=== PATIENT | male | born 1960 | race Two or more races ===

== ENCOUNTER 2024-06-18 11:17 | Outpatient (AMB) | payer MEDICARE, SELFPAY ==
--- NOTE | 2024-06-18 11:28 | A.OFFVIS_ITS ---
Vital Signs 3 06/18/24 11:42 Height 5 ft 7 in Weight 172 lb BMI 26.9 BP 132/90 H Blood Pressure Location Lt brachial Position Sitting Pulse 67 Intake Visit Reasons: RT groin confirmed inguinal hernia Intake Note: Patient is seen in office for evaluation of a right groin hernia. Pt c/o:feels a lump in the right groin, onset few months, reducible, denies pain, discomfort, or increase Imagin05/21/24 Resin Painter Required: No Accompanied by: Self / Same As Patient Allergies No Known Allergies Allergy (Verified 06/18/24 11:41) Medication List - Last Reconciled 06/18/24 by Joaquin Martinez MD apixaban (Eliquis) 5 mg PO BID HPI Comments Details: 63-year-old male patient presenting for evaluation of a right inguinal hernia. He 1st noted the lump several months ago but denies any inciting events. He does note the lump to occasionally increase in size with lifting and straining but does feel the hernia reduce in the supine position. He denies any pain associated with the hernia. He also denies nausea, vomiting, fever, chills, diarrhea, or constipation. Denies a prior history of hernias or hernia surgery. [facility] Social History Alcohol intake: current Alcohol intake frequency: holidays/special occasions only Patient Tobacco Use Status: Former Tobacco user Review of Systems Const All systems reviewed & are unremarkable except as noted in HPI and below Physical Exam Vital Signs: Last Vital Signs Pulse 67 06/18/24 11:42 BP 132/90 H 06/18/24 11:42 BMI result Body Mass Index 26.9 Const General: cooperative and no acute distress Nutritional Appearance: well nourished Orientation/consciousness: patient oriented x3 Limitations: no limitations HEENT Head: Yes normocephalic and Yes atraumatic Ears: hearing grossly normal bilaterally Resp Effort & Inspection: normal respiratory effort, no audible wheezes, no cough and no respiratory distress Cardio Jugular venous distension: no JVD GI Other: Small right inguinal hernia noted in the standing position which increased slightly with Valsalva maneuvers but is easily reduced with light pressure. No left inguinal hernias appreciated. Inspection: Yes normal to inspection Abdomen image: 2 1. Small right inguinal hernia, easily reducible. Skin Other: Warm, dry, no rash Neuro General: patient oriented x3 Extrem General: Yes no clubbing, cyanosis or edema Assessment & Plan Assessment & Plan (1) Right inguinal hernia: Code(s): K40.90 - Unilateral inguinal hernia, without obstruction or gangrene, not specified as recurrent Category: Medical Plan 63-year-old male patient with a new onset right inguinal hernia which was recently identified and confirmed on physical examination. He denies any symptoms associated with the hernia at this time and denies any inciting events caused the hernia. We discussed the repair of the inguinal hernia including the risks and benefits. He wishes to think about his options and will call should his symptoms worsen or if he wishes to schedule the surgery. He should follow up as needed. Coding Level of Care Code New Pt Level 4 (18033) Diagnoses Right inguinal hernia K40.90
[2024-06-18 11:42] VITALS: BP 132/90; PULSE 67; BMI 26.9
== END 2024-06-18 11:58 | disposition home or self-care (01) ==
PROVIDERS: PCP Internal Medicine; Referring Provider Internal Medicine; Visit Provider Surgery
DX: K40.90 Unilateral inguinal hernia, without obstruction or gangrene, not specified as recurrent (principal)
CPT/HCPCS: 99204

== ENCOUNTER → 2024-06-18 11:17 | Outpatient (BNVA) | payer MEDICARE, SELFPAY | PROVIDERS: PCP Internal Medicine; Referring Provider Internal Medicine; Visit Provider Surgery | DX: K40.90 Unilateral inguinal hernia, without obstruction or gangrene, not specified as recurrent (principal) | CPT/HCPCS: 99202 ==

== ENCOUNTER 2024-07-10 12:30 | Day surgery (SDC) | payer MEDICARE, SELFPAY ==
[2024-06-27 14:05] VITALS: BMI 26.3
--- NOTE | 2024-06-28 11:56 | HO.ANESPROP2 ---
Documented by User: Steffany Fowler NP 07/02/24 13:16 HPI - Anesthesia Eval Consult details Narrative: 63yo M for Right Repair Hernia Inguinal with mesh Follows [facility] Cardiology. Optimized for procedure. Last office visit 04/2024 Eliquis for afib PMFSH Active Problems Active Problems: All Active Problems Right inguinal hernia (Acute) Past Medical History Medical History (Updated 06/27/24 @ 13:50 by Lexie Andres RN) Back pain COPD (chronic obstructive pulmonary disease) PAF (paroxysmal atrial fibrillation) BPH (benign prostatic hyperplasia) Surgical History Surgical History (Updated 06/27/24 @ 13:50 by Lexie Andres RN) H/O colonoscopy Social History Social History Are you a primary home care and home health aides teacher to a significant other at home: No Do you presently have visiting nurse or other home services: No Alcohol intake: current Alcohol intake frequency: a few times a month Patient Tobacco Use Status: Former Tobacco user Use of substances other than those prescribed or required for medical reasons: No Have you been hit, kicked, punched, or otherwise hurt by someone within the past year? If so, by whom?: No Are you DNR?: No Advance Directives: No Advance Directives Information Provided: Yes Advance Directives on File: No Recently lost weight without trying: No Eating poorly because of decreased appetite: No Nutrition Risks: No Nutritional Risk Poor oral hygiene: Yes (missing teeth) Meds Allergies Allergy/AdvReac Type Severity Reaction Status Date / Time No Known Allergies Allergy Verified 06/18/24 11:41 Home Medications ?Medication ?Instructions ?Recorded ?Confirmed ?Last Taken ?Type apixaban 5 mg tablet (Eliquis) 5 mg PO BID 06/18/24 06/27/24 07/06/24 History albuterol sulfate 90 mcg/actuation 1 puff inhalation Q4H PRN 06/27/24 06/27/24 07/09/24 History aerosol inhaler Shortness Of Breath Or Wheezing ascorbic acid (vitamin C) 500 mg 500 mg PO DAILY 06/27/24 06/27/24 07/09/24 History tablet (Vitamin C) fluticasone furoate 100 1 ea inhalation DAILY 06/27/24 06/27/24 07/09/24 History mcg-vilanterol 25 mcg/dose inhalation powder (Breo Ellipta) multivitamin 1 tab PO DAILY 06/27/24 06/27/24 07/09/24 History Exam Height,Weight and Vital Signs: Height 5 ft 7 in Weight 76.204 kg Pertinent Lab Results Pertinent Lab Results: From outside facility CBC 01/2024 wnl except low H&H @ 12.5/38.6 BMP 01/2024 wnl Narrative Narrative: EKG 01/2024 afib NAD Peaked T Echo 05/2024 Nml LV chamber size. Borderline conc LVH. Nml LV sys function Nml RWM. LVEF 55-60%. Afib Nml RV size and function PASP not elevated Severely dilated LA No hemodynamically significant valve disease Assessment and Plan Assessment Anesthesia Assessment: Chart Reviewed Documented by User: Erlin Ventura MD 07/10/24 16:01 [facility] Past Medical History Medical History (Updated 06/27/24 @ 13:50 by Lexie Andres RN) Back pain COPD (chronic obstructive pulmonary disease) PAF (paroxysmal atrial fibrillation) BPH (benign prostatic hyperplasia) Family History Family history of problems with anesthesia: No Surgical History Surgical History (Updated 06/27/24 @ 13:50 by Lexie Andres RN) H/O colonoscopy History of Problems with Anesthesia: No Social History Social History Are you a primary home care and home health aides teacher to a significant other at home: No Do you presently have visiting nurse or other home services: No Alcohol intake: current Alcohol intake frequency: a few times a month Patient Tobacco Use Status: Former Tobacco user Use of substances other than those prescribed or required for medical reasons: No Have you been hit, kicked, punched, or otherwise hurt by someone within the past year? If so, by whom?: No Are you DNR?: No Advance Directives: No Advance Directives Information Provided: Yes Advance Directives on File: No Recently lost weight without trying: No Eating poorly because of decreased appetite: No Nutrition Risks: No Nutritional Risk Poor oral hygiene: Yes (missing teeth) Meds Allergies Allergy/AdvReac Type Severity Reaction Status Date / Time No Known Allergies Allergy Verified 06/18/24 11:41 Home Medications ?Medication ?Instructions ?Recorded ?Confirmed ?Last Taken ?Type apixaban 5 mg tablet (Eliquis) 5 mg PO BID 06/18/24 06/27/24 07/06/24 History albuterol sulfate 90 mcg/actuation 1 puff inhalation Q4H PRN 06/27/24 06/27/24 07/09/24 History aerosol inhaler Shortness Of Breath Or Wheezing ascorbic acid (vitamin C) 500 mg 500 mg PO DAILY 06/27/24 06/27/24 07/09/24 History tablet (Vitamin C) fluticasone furoate 100 1 ea inhalation DAILY 06/27/24 06/27/24 07/09/24 History mcg-vilanterol 25 mcg/dose inhalation powder (Breo Ellipta) multivitamin 1 tab PO DAILY 06/27/24 06/27/24 07/09/24 History Exam Airway Mallampati Class: II TM Dist: >3cm Neck ROM: Full Loose/Missing/Broken Teeth: No Heart: ok. see above Lungs: ok Assessment and Plan Assessment Anesthesia Assessment: Anesthesia Plan Discussed Final Anesthetic Review Family History of Problems with Anesthesia: No History of Problems with Anesthesia: No NPO: Yes ASA Class: III Final Preanesthetic Review: No Changes in Pt Med Stat, Meds/Allgs Chart Reviewed, Consent Obtained/Reviewed, Anes Risks/Benef Reviewed and DNR Form (If Appl.) Patient Risk: Low Procedure Risk: Low Anesthetic Plan Anesthetic Plan: GA and Agree w/ Assess. and Plan Disposition: Standard PACU
[2024-07-10 13:43] VITALS: BP 139/76; PULSE 61; RESP 16; TEMP 36.7; O2SAT 100
[2024-07-10] MEDS: Lactated Ringers 1,000 ML 100 ML IVCONT (13:51)
--- NOTE | 2024-07-10 15:00 | MHC.SHP ---
Pre-Procedural Eval Section A - 24 Hr Update-Section A only Date of Service: 07/10/24 The patient is an INPATIENT: No Changes since office visit: Yes Patient answered all questions; No Cold of Flu in the past 2 weeks, No New Medical Problems and No Changes in Medication The patient has been examined within 24 hours of the surgical procedure. The History & Physical has been completed within 30 days and I have reviewed it.: Yes Section B - Complete if H&P > 30 days Chief Complaint: Unilateral inguinal hernia, without obstruction Allergies: Allergies Allergy/AdvReac Type Severity Reaction Status Date / Time No Known Allergies Allergy Verified 06/18/24 11:41 Plan Diagnosis/Plan: Unchanged I have reviewed the history and physical and performed a pertinent physical examination on my patient. No changes have occurred unless specified. I reviewed the procedure, risks, and alternatives of repair of right inguinal hernia with mesh and he consents to the surgery. Time Spent With Patient Time: Total time managing care of this patient today ____ minutes.
--- NOTE | 2024-07-10 16:22 | P.OP_ITS ---
Operative Note Operative Note Date of Service: 07/10/24 Narrative: Preoperative diagnosis: Right Inguinal hernia, reducible Postoperative diagnosis: Same Procedure: Repair of right inguinal hernia with mesh Surgeon: Joaquin Martinez MD Coil Builder: Radha Box PA-C Anesthesia: General LMA Indications for procedure: 63-year-old male presenting with complaints of a painful lump in the right groin found on examination to have a palpable right inguinal hernia which reduces with light pressure. Operative findings: The patient was found to have a direct hernia located just lateral to the medial edge of the pubic tubercle. In addition a lipoma of the cord was identified. Specimen: Lipoma of the cord Estimated blood loss: 2 mL Complications: None Procedure details: Patient was brought to the OR and placed in a supine position. After administering general anesthesia the patient's abdomen was prepped with ChloraPrep and draped in a sterile fashion. A surgical time-out was called and the consent confirmed. Patient received preoperative antibiotics and Venodyne boots were in place. Local anesthesia was infiltrated over the right inguinal ligament. Incision was then made with a scalpel and carried out through subcutaneous tissue, past Terri's fascia up to the external oblique aponeurosis. Additional local was infiltrated below the external oblique aponeurosis. This was then incised with a scalpel in the directions of the fiber. This was widened with the Metzenbaum scissors. The spermatic cord was then dissected free from the surrounding inguinal canal and retracted using a Kristie drain. A small medial direct hernia was identified. Fibers of the cremaster muscle were and a small lipoma noted within the cord. This was dissected down to the internal ring ligated and divided. No sac could be identified within the spermatic cord. Attention was then directed to the direct hernia which was reduced into the abdominal cavity. Fibers of the internal oblique and transversus abdominis aponeurosis were incised with the timur ctrocautery. A preperitoneal space was then entered and widened with an open Ray-Annalise sponge. A large PHS mesh was then obtained. The circular underlay was then deployed within the preperitoneal space. The overlay was then secured to the pubic tubercle, conjoined tendon, and shelving edge of the inguinal ligament using a 0 Polysorb suture. A slit was made in the mesh at the internal ring and wrapped around the spermatic cord. This was then secured to the shelving edge of the inguinal ligament using a 0 Polysorb suture. The remainder of the mesh laterally was placed below the external oblique aponeurosis. Wounds were then irrigated with saline solution and suctioned dry. External oblique aponeurosis was then closed using a running 2-0 Polysorb suture. Approximately 6 mL of Zenrelef was then instilled below the external oblique aponeurosis. Terri's fascia and dermis were then reapproximated using interrupted 3-0 Polysorb sutures. Skin was closed using a running subcuticular 4-0 Polysorb suture. Sterile dressings consisting of Steri-Strips, 4 x 4 gauze and Tegaderm were then applied. The patient tolerated the procedure well. Sponge, instrument, and needle counts reported as correct. The patient was transferred to PACU in stable condition.
[2024-07-10 16:25] VITALS: BP 102/63; PULSE 59; RESP 14; TEMP 36.6; O2SAT 99
[2024-07-10 16:30] VITALS: BP 97/66; PULSE 52; RESP 14; O2SAT 99
[2024-07-10 16:35] VITALS: BP 110/68; PULSE 56; RESP 16; O2SAT 99
[2024-07-10 16:55] VITALS: BP 105/68; PULSE 57; RESP 16; TEMP 36.6; O2SAT 98
== END 2024-07-10 17:10 | disposition home or self-care (01) ==
PROVIDERS: PCP Internal Medicine; Visit Provider Surgery
PROC: (CPT 49505; principal; 2024-07-10 14:00)
DX: K40.90 Unilateral inguinal hernia, without obstruction or gangrene, not specified as recurrent (principal); D17.6 Benign lipomatous neoplasm of spermatic cord; I48.0 Paroxysmal atrial fibrillation; J44.9 Chronic obstructive pulmonary disease, unspecified; N40.0 Benign prostatic hyperplasia without lower urinary tract symptoms; M54.9 Dorsalgia, unspecified; Z79.01 Long term (current) use of anticoagulants; Z79.51 Long term (current) use of inhaled steroids; Z87.891 Personal history of nicotine dependence
CPT/HCPCS: 49505; 88304; C1781; C9088; J0690; J1885; J2003; J2704; J2795; J3010

== ENCOUNTER → 2024-07-10 12:30 | Outpatient (BNV) | payer MEDICARE, SELFPAY | PROVIDERS: PCP Internal Medicine; Visit Provider Surgery | DX: K40.90 Unilateral inguinal hernia, without obstruction or gangrene, not specified as recurrent (principal) | CPT/HCPCS: 49505 ==

== ENCOUNTER 2024-07-23 09:58 | Outpatient (AMB) | payer MEDICARE, SELFPAY ==
--- NOTE | 2024-07-23 10:10 | A.OFFVIS_ITS ---
Intake Visit Reasons: S/P RIH w/mesh Intake Note: Patient is seen in office for post op assessment post repair of right inguinal hernia with mesh. Pt c/o: admits to sore, tender and some bruising, denies redness, discharge or other concerns surgery: 07/10/24 [place] Required: No Accompanied by: Self / Same As Patient Allergies No Known Allergies Allergy (Verified 07/23/24 10:11) Medication List - Last Reconciled 07/23/24 by Joaquin Martinez MD albuterol sulfate 90 mcg/actuation 1 puff inhalation Q4H PRN apixaban (Eliquis) 5 mg PO BID ascorbic acid (vitamin C) (Vitamin C) 500 mg PO DAILY fluticasone furoate-vilanterol 100-25 mcg/dose (Breo Ellipta) 1 ea inhalation DAILY multivitamin 1 tab PO DAILY HPI Comments Details: 63-year-old male patient status post repair of a direct right inguinal hernia with mesh on 07/10/2024. He reports some mild incisional pain and swelling but generally feels improved. He denies any other abdominal symptoms. [facility] Medical History Back pain COPD (chronic obstructive pulmonary disease) PAF (paroxysmal atrial fibrillation) BPH (benign prostatic hyperplasia) Surgical History History of right inguinal hernia repair (07/10/24) H/O colonoscopy Social History Are you a primary intensive care anaesthetist to a significant other at home: No Do you presently have visiting nurse or other home services: No Alcohol intake: current Alcohol intake frequency: a few times a month Patient Tobacco Use Status: Former Tobacco user Physical Exam Const General: comfortable Nutritional Appearance: well nourished Orientation/consciousness: patient oriented x3 Resp Effort & Inspection: normal respiratory effort GI Other: Incision in the right groin is clean, dry, and intact without redness or discharge. No hernias noted with Valsalva maneuvers. Neuro General: patient oriented x3 Extrem Other: No edema Assessment & Plan Assessment & Plan (1) Right inguinal hernia: Code(s): K40.90 - Unilateral inguinal hernia, without obstruction or gangrene, not specified as recurrent Category: Medical Plan 63-year-old male patient status post repair of a right inguinal hernia with mesh. He tolerated the procedure well the wounds are healing nicely. There is no evidence of infection or recurrence. I recommended continued restricted lifting of 10 lb or less. He should follow up in 1 month for wound check. He is welcome to call sooner for any new concerns. Coding Level of Care Code Global (52134) Diagnoses Right inguinal hernia K40.90
== END 2024-07-23 10:19 | disposition home or self-care (01) ==
PROVIDERS: PCP Internal Medicine; Visit Provider Surgery
DX: K40.90 Unilateral inguinal hernia, without obstruction or gangrene, not specified as recurrent (principal)
CPT/HCPCS: 99024

== ENCOUNTER → 2024-07-23 09:58 | Outpatient (BNVA) | payer MEDICARE, SELFPAY | PROVIDERS: PCP Internal Medicine; Visit Provider Surgery | DX: K40.90 Unilateral inguinal hernia, without obstruction or gangrene, not specified as recurrent (principal) | CPT/HCPCS: 99212 ==

== ENCOUNTER 2024-09-19 09:54 | Outpatient (AMB) | payer MEDICARE, SELFPAY ==
--- NOTE | 2024-09-19 09:59 | MHC.OFFVIS ---
Vital Signs 09/19/24 10:05 Height 5 ft 7 in Weight 174 lb 6 oz BMI 27.3 BP 134/85 Blood Pressure Location Lt brachial Position Sitting Pulse 67 Intake Visit Reasons: 1 mth follow up S/P RIH w/mesh Intake Note: Patient is seen in office for one month follow up visit, post right inguinal hernia repair. Pt c/o: denies any concerns Polymer Specialist Required: No Accompanied by: Self / Same As Patient Allergies No Known Allergies Allergy (Verified 09/19/24 10:04) Medication List - Last Reconciled 09/19/24 by Joaquin Martinez MD albuterol sulfate 90 mcg/actuation 1 puff inhalation Q4H PRN apixaban (Eliquis) 5 mg PO BID ascorbic acid (vitamin C) (Vitamin C) 500 mg PO DAILY fluticasone furoate-vilanterol 100-25 mcg/dose (Breo Ellipta) 1 ea inhalation DAILY multivitamin 1 tab PO DAILY HPI Comments Details: 63-year-old male patient status post repair of a direct right inguinal hernia with mesh on 07/10/2024. He reports some mild sensitivity below the incision in the right groin but generally feels well. He returns today for a one-month postop visit. [facility] Medical History Back pain COPD (chronic obstructive pulmonary disease) PAF (paroxysmal atrial fibrillation) BPH (benign prostatic hyperplasia) Surgical History History of right inguinal hernia repair (07/10/24) H/O colonoscopy Social History Are you a primary animal daycare provider to a significant other at home: No Do you presently have visiting nurse or other home services: No Alcohol intake: current Alcohol intake frequency: a few times a month Patient Tobacco Use Status: Former Tobacco user Physical Exam Vital Signs: Last Vital Signs Pulse 67 09/19/24 10:05 BP 134/85 09/19/24 10:05 BMI result Body Mass Index 27.3 Const General: comfortable Nutritional Appearance: well nourished Orientation/consciousness: patient oriented x3 Resp Effort & Inspection: normal respiratory effort GI Other: Incision in the right groin is clean, dry, and intact without redness or discharge. No hernias noted with Valsalva maneuvers. Neuro General: patient oriented x3 Extrem Other: No edema Assessment & Plan Assessment & Plan (1) Right inguinal hernia: Code(s): K40.90 - Unilateral inguinal hernia, without obstruction or gangrene, not specified as recurrent Category: Medical Plan 63-year-old male patient status post repair of a right inguinal hernia with mesh. He tolerated the procedure well the wounds are healing nicely. There is no evidence of infection or recurrence. He may resume normal activity without restrictions and should follow up as needed for new concerns. Coding Level of Care Code Global (21616) Diagnoses Right inguinal hernia K40.90
[2024-09-19 10:05] VITALS: BP 134/85; PULSE 67; BMI 27.3
--- OUTSIDE RECORDS SUMMARY | 2024-09-19 10:30 | XMS_ITS | Encounter Summary ---
Author Organization [facility] [place] [address] Care Team Providers Care Water Main Installer Helper Name Role Phone NayAntwan Primary Care Provider [phone] Encounter Details Date Type Department Care Team (Late st Contact Info) Description 08/06/2024 Lab Requisition [facility] - Main Lab [address] [facility] [place] [address] Elke Mishra NP [address] [place] [id number] Frequency of micturition Social History Tobacco Use Types Packs/Day Years Used Date Smoking Tobacco: Never Assessed Sex and Gender Information Value Date Recorded Sex Assigned at Not on file Legal Sex Male 11:44 PM EST Gender Identity Not on file Sexual Orientation Not on file documented as of this encounter Plan of Treatment Not on file documented as of this encounter Procedures Procedure Name Priority Date/Time Associated Diagnosis Comments URINALYSIS WITH REFLEX MICROSCOPIC Routine 08/06/2024 12:19 PM EST Frequency of micturition URINALYSIS WITH REFLEX MICROSCOPIC Routine 08/06/2024 12:19 PM EST Frequency of micturition CULTURE URINE Routine 08/06/2024 12:19 PM EST Frequency of micturition documented in this encounter Results * Urinalysis with reflex microscopic (08/06/2024 12:19 PM EST) Specific [place] Urine 1.022 1.003 - 1.030 LAB URINALYSIS - AUTOMATED METHOD 08/06/2024 3:57 PM [facility] pH, Urine 5.5 5.0 - 8.0 pH LAB URINALYSIS - AUTOMATED METHOD 08/06/2024 3:57 PM [facility] Leukocytes, Urine Negative Negative LAB URINALYSIS - AUTOMATED METHOD 08/06/2024 3:57 PM [facility] Nitrite, Urine Negative Negative LAB URINALYSIS - AUTOMATED METHOD 08/06/2024 3:57 PM [facility] Protein, Urine Negative <=Trace mg/dL LAB URINALYSIS - AUTOMATED METHOD 08/06/2024 3:57 PM [facility] Glucose, Urine Negative Negative mg/dL LAB URINALYSIS - AUTOMATED METHOD 08/06/2024 3:57 PM [facility] Ketones, Urine Negative Negative mg/dL LAB URINALYSIS - AUTOMATED METHOD 08/06/2024 3:57 PM [facility] Urobilinogen, Urine 0.2 0.2 - 1.0 mg/dL LAB URINALYSIS - AUTOMATED METHOD 08/06/2024 3:57 PM [facility] Bilirubin, Urine Negative Negative LAB URINALYSIS - AUTOMATED METHOD 08/06/2024 3:57 PM [facility] Blood, Urine Negative Negative LAB URINALYSIS - AUTOMATED METHOD 08/06/2024 3:57 PM [facility] Urine Urine specimen obtained by clean catch procedure / Unknown 08/06/2024 12:19 PM EST 08/06/2024 3:38 PM EST us Bedoya Mishra METAL MODEL BUILDER LAB URINE ORDERABLES Final Resul t [facility] [address] [place] [address], * Culture urine (08/06/2024 12:19 PM EST) Culture, Urine No growth 08/07/2024 11:37 AM EST [facility] Urine Urine specimen obtained by clean catch procedure / Unknown 08/06/2024 12:19 PM EST 08/06/2024 3:38 PM EST us Bedoya Mishra METAL MODEL BUILDER LAB MICROBIOLOGY - GENERAL ORDER JIMY Final Result [facility] [address] [place] [address], [place] [phone] documented in this encounter Visit Diagnoses Diagnosis Frequency of micturition Urinary frequency documented in this encounter Care Teams Water Main Installer Helper Relationship Specialty Start Date End Date Antwan Tee DO [address] [place] [id number] PCP - General 01/23/24 documented as of this encounter
--- OUTSIDE RECORDS SUMMARY | 2024-09-19 10:31 | XMS_ITS | Clinical Summary ---
Author Organization [facility] Address [address] [place] [address] Phone Care Team Providers Care Inside Sales Supervisor Name Role Phone Antwan Tee DO Primary Care Provider [phone] Encounters Date Type Department Care Team Description 08/06/2024 Lab Requisition [facility] - Main Lab [address] [place] [address] Elke Mishra NP Frequency of micturition from Last 3 Months Social History Tobacco Use Types Packs/Day Years Used Date Smoking Tobacco: Never Assessed Sex and Gender Information Value Date Recorded Sex Assigned at Not on file Legal Sex Male 11:44 PM EST Gender Identity Not on file Sexual Orientation Not on file Last Filed Vital Signs Vital Sign Reading Time Taken Comments Blood Pressure - - Pulse - - Temperature - - Respiratory Rate - - Oxygen Saturation - - Inhaled Oxygen Concentration - - Weight 77.6 kg (171 lb) 05/21/2024 10:06 AM EDT Height 170.2 cm (5' 7 ) 05/21/2024 10:06 AM EDT Body Mass Index 26.78 05/21/2024 10:06 AM EDT Plan of Treatment Health Maintenance Due Date Last Done Comments Pneumococcal Vaccine: 50+ Years (1 of 1 - PCV) 2010 Zoster Vaccines (1 of 2) 2010 COVID-19 Vaccine (1 - 2023- season) 2024 Influenza Vaccine (#1) 2024 05/16/2018 Colorectal Cancer Screening: Colonoscopy 05/14/2024 Depression Screening 05/14/2024 HIV Screening 05/14/2024 Medicare Annual Wellness Visit 05/14/2024 Social Influencers of Health Screening 05/14/2024 Hypertension/CHF/CAD Annual BMP Blood Test 09/16/2025 09/16/2024, 11/17/2022, 01/17/2022, Additional history exists Cholesterol Screening (Lipid Panel) 11/18/2027 11/17/2022 DTaP,Tdap,and Td Vaccines (2 - Td or Tdap) 11/12/2030 11/12/2020 RSV Immunization Patients 60+ Years Old (1 - 1-dose 75+ series) 12/29/2035 Hepatitis C Screening Completed 11/17/2022 HIB Vaccines Aged Out No longer eligi ble based on patient's age to complete this topic HPV Vaccines Aged Out No longer eligi ble based on patient's age to complete this topic Hepatitis A Vaccines Aged Out No long er eligible based on patient's age to complete this topic Hepatitis B Vaccines Aged Out No long er eligible based on patient's age to complete this topic IPV Vaccines Aged Out No longer eligi ble based on patient's age to complete this topic MMR Vaccines Aged Out No longer eligi ble based on patient's age to complete this topic Meningococcal ACWY Vaccine Aged Out N o longer eligible based on patient's age to complete this topic Meningococcal B Vacine Aged Out No lo nger eligible based on patient's age to complete this topic Pneumococcal Vaccine: Pediatrics (0 to 5 Years) and At-Risk Patients (6 to 64 Years) Aged Out No longer eligible based on patient's age to complete this topic RSV Immunization Patients Under 20 months Aged Out No longer eligible based on patient's age to complete this topic Varicella Vaccines Aged Out No longer eligible based on patient's age to complete this topic Procedures Procedure Name Priority Date/Time Associated Diagnosis Comments BASIC METABOLIC PANEL Routine 09/16/2024 11:05 AM EST CAD (coronary artery disease) Shoulder pain ASPARTATE AMINOTRANSFERASE Routine 09/16/2024 11:05 AM EST CAD (coronary artery disease) Shoulder pain ALANINE AMINOTRANSFERASE Routine 025 11:05 AM EST CAD (coronary artery disease) Shoulder pain URINALYSIS WITH REFLEX MICROSCOPIC Routine 08/06/2024 12:19 PM EST Frequency of micturition URINALYSIS WITH REFLEX MICROSCOPIC Routine 08/06/2024 12:19 PM EST Frequency of micturition CULTURE URINE Routine 08/06/2024 12:19 PM EST Frequency of micturition from Last 3 Months Results * Alanine aminotransferase (09/16/2024 11:05 AM EST) ALT (SGPT) 25 10 - 60 unit/L LAB CHEMISTRY METHOD 09/16/2024 4:43 PM EST [facility] Blood Venous blood specimen / Unknown Venipuncture / Unknown 09/16/2024 11:05 AM EST 09/16/2024 11:06 AM EST us Bedoya Mishra [employer] [employer] LAB BLOOD ORDERABLES Final Resul t Performing Organization Address [facility]/ZIP Co de Phone Number [facility] [address] [place] [address], [place] [phone] * Aspartate aminotransferase (09/16/2024 11:05 AM EST) Pathologist [facility] AST (SGOT) 19 10 - 42 unit/L LAB CHEMISTRY METHOD 09/16/2024 4:43 PM EST [facility] Blood Venous blood specimen / Unknown Venipuncture / Unknown 09/16/2024 11:05 AM EST 09/16/2024 11:06 AM EST us Bedoya Mishra [employer] [employer] LAB BLOOD ORDERABLES Final Resul t Performing Organization Address [facility]/ZIP Co de Phone Number [facility] [address] [place] [address], [place] [phone] * Basic metabolic panel (09/16/2024 11:05 AM EST) Sodium 138 133 - 145 mmol/L LAB CHEMISTRY METHOD 09/16/2024 4:43 PM EST [facility] Potassium 4.5 3.5 - 5.5 mmol/L LAB CHEMISTRY METHOD 09/16/2024 4:43 PM [facility] Chloride 106 96 - 110 mmol/L LAB CHEMISTRY METHOD 09/16/2024 4:43 PM [facility] CO2 24 21 - 32 mmol/L LAB CHEMISTRY METHOD 09/16/2024 4:43 PM [facility] Anion Gap 8 3 - 11 LAB CHEMISTRY METHOD 09/16/2024 4:43 PM [facility] Glucose 90 70 - 100 mg/dL LAB CHEMISTRY METHOD 09/16/2024 4:43 PM [facility] BUN 22 5 - 25 mg/dL LAB CHEMISTRY METHOD 09/16/2024 4:43 PM [facility] Creatinine 1.07 0.70 - 1.30 mg/dL LAB CHEMISTRY METHOD 09/16/2024 4:43 PM [facility] eGFR 78 >=60 mL/min/1. 73m2 LAB CHEMISTRY METHOD 09/16/2024 4:43 PM [facility] Comment:Calculation based on the??Chronic Kidney Disease Epidemiology Collaboration (CKD-EPI) equation refit??without adjustment for race. BUN/Creatinine Ratio 20.6 LAB CHEMISTRY METHOD 09/16/2024 4:43 PM [facility] Calcium 9.3 8.5 - 10.5 mg/dL LAB CHEMISTRY METHOD 09/16/2024 4:43 PM [facility] Blood Venous blood specimen / Unknown Venipuncture / Unknown 09/16/2024 11:05 AM EST 09/16/2024 11:06 AM EST us Bedoya Mishra [employer] [employer] LAB BLOOD ORDERABLES Final Resul t [facility] [address] [place] [address], [place] [phone] * Urinalysis with reflex microscopic (08/06/2024 12:19 PM EST) Specific [place] Urine 1.022 1.003 - 1.030 LAB URINALYSIS - AUTOMATED METHOD 08/06/2024 3:57 PM [facility] pH, Urine 5.5 5.0 - 8.0 pH LAB URINALYSIS - AUTOMATED METHOD 08/06/2024 3:57 PM [facility] Leukocytes, Urine Negative Negative LAB URINALYSIS - AUTOMATED METHOD 08/06/2024 3:57 PM [facility] Nitrite, Urine Negative Negative LAB URINALYSIS - AUTOMATED METHOD 08/06/2024 3:57 PM [facility] Protein, Urine Negative <=Trace mg/dL LAB URINALYSIS - AUTOMATED METHOD 08/06/2024 3:57 PM [facility] Glucose, Urine Negative Negative mg/dL LAB URINALYSIS - AUTOMATED METHOD 08/06/2024 3:57 PM [facility] Ketones, Urine Negative Negative mg/dL LAB URINALYSIS - AUTOMATED METHOD 08/06/2024 3:57 PM [facility] Urobilinogen, Urine 0.2 0.2 - 1.0 mg/dL LAB URINALYSIS - AUTOMATED METHOD 08/06/2024 3:57 PM [facility] Bilirubin, Urine Negative Negative LAB URINALYSIS - AUTOMATED METHOD 08/06/2024 3:57 PM [facility] Blood, Urine Negative Negative LAB URINALYSIS - AUTOMATED METHOD 08/06/2024 3:57 PM [facility] Urine Urine specimen obtained by clean catch procedure / Unknown 08/06/2024 12:19 PM EST 08/06/2024 3:38 PM EST us Bedoya Mishra [employer] [employer] LAB URINE ORDERABLES Final Resul t [facility] [address] [place] [address], [place] [phone] * Culture urine (08/06/2024 12:19 PM EST) Culture, Urine No growth 08/07/2024 11:37 AM EST [facility] Urine Urine specimen obtained by clean catch procedure / Unknown 08/06/2024 12:19 PM EST 08/06/2024 3:38 PM EST us Bedoya Mishra [employer] [employer] [facility] MICROBIOLOGY - GENERAL ORDER JIMY Final Result [facility] [address] [place] [address], [place] [phone] from Last 3 Months Insurance MEDICAID - [place] [employer] MEDICARE Care Teams Inside Sales Supervisor Relationship Specialty Start Date End Date Antwan Tee DO [address] [place] [id number] [facility] - General 01/23/24
== END 2024-09-19 10:12 | disposition home or self-care (01) ==
PROVIDERS: PCP Internal Medicine; Visit Provider Surgery
DX: K40.90 Unilateral inguinal hernia, without obstruction or gangrene, not specified as recurrent (principal)
CPT/HCPCS: 99024

== ENCOUNTER → 2024-09-19 09:54 | Outpatient (BNVA) | payer MEDICARE, SELFPAY | PROVIDERS: PCP Internal Medicine; Visit Provider Surgery | DX: Z48.815 Encounter for surgical aftercare following surgery on the digestive system (principal); Z98.890 Other specified postprocedural states | CPT/HCPCS: 99212 ==